=== PATIENT | male | born 1940 | race Hispanic/Latino ===

== ENCOUNTER 2020-11-17 15:10 | Inpatient (IN) | payer OTHER ==
[~2020-11-17] VITALS: Ht 167.6 cm; Wt 85.7 kg
[~2020-11-17 15:10] MED LIST: ACETAMINOPHEN PO; ALDACTONE25 MG PO; AMIODARONE HCL200 MG PO; AMIODARONE HCL400 MG PO; GABAPENTIN300 MG PO; GLUCOTROL XL5 MG PO; HYDROCODON-ACE1 EACH PO; KLOR-CON M2020 MEQ PO; LASIX40 MG PO; LEVOFLOXACIN500 MG PO; LEVOTHYROXINE75 MCG PO; LOPRESSOR25 MG PO; PRAVASTATIN SOD40 MG PO; TAMSULOSIN HCL0.4 MG PO; ULTRAM50 MG PO; WARFARIN SODIUM2 MG PO
[2020-11-17 15:43] LABS: BASOPHILS # (AUTO) 0.1 (0.0-0.1); BASOPHILS % 1.4 % (0.0-1.0); EOSINOPHILS # (AUTO) 0.2 (0.0-0.4); EOSINOPHILS % 3.3 % (0.0-6.0); HEMATOCRIT 21.1 % (38.2-49.6); LYMPHOCYTES # (AUTO) 0.9 (1.0-3.2); MEAN CORPUSCULAR HGB CONC 28.4 g/dL (31-35); MEAN CORPUSCULAR VOLUME 77.3 fL (81-99); MONOCYTES # (AUTO) 0.5 (0.2-0.8); MONOCYTES % 7.3 % (4.4-11.3); NEUTROPHILS # (AUTO) 5.2 (2.1-6.9); NEUTROPHILS % 74.4 % (38.7-80.0); PLATELET COUNT 383 x10e3/uL (140-360); RED BLOOD COUNT 2.73 x10e6/uL (4.3-5.7)
[2020-11-17 15:52] LABS: INR 3.68; PROTHROMBIN TIME 39.8 seconds (11.9-14.5)
[2020-11-17 15:59] LABS: ALBUMIN 3.6 g/dL (3.5-5.0); ANION GAP 14.7 mmol/L (8-16); CALCIUM 8.7 mg/dL (8.4-10.2); CREATININE, SERUM 2.42 mg/dL (0.72-1.25); POTASSIUM 4.7 mmol/L (3.5-5.1)
[2020-11-17 16:05] LABS: CREATINE KINASE MB 4.6 ng/mL (0-5.0)
[2020-11-17] MEDS ORDERED: ONDANSETRON HCL INJ 2MG/ML 2ML 2 MG/ML VIAL IV PRN (16:45)
[2020-11-17] MEDS ORDERED: SODIUM CHLORIDE 0.9% 1000ML 1,000 ML IV SCH (16:45)
[2020-11-17] MEDS ORDERED: FUROSEMIDE INJ 10 MG/ML 2 ML VIAL IV PRN (16:45)
[2020-11-17] MEDS ORDERED: TRAMADOL HCL 50 MG TAB PO PRN (17:45)
[2020-11-17 18:25] LABS: THYROID STIMULATING HORMONE 1.041 uIU/mL (0.350-4.940)
[2020-11-17] MEDS: GABAPENTIN 300 MG CAP PO SCH ×2 (18:51→21:00)
[2020-11-17 20:00] VITALS: BP 113/82
[2020-11-17] MEDS: INSULIN LISPRO 100 UNIT/1 ML 3ML VIAL SQ SCH (22:00)
[2020-11-17] MEDS ORDERED: DEXTROSE 50% SYRINGE 50 ML IV PRN (22:00)
[2020-11-17 22:58] VITALS: BP 113/63
[2020-11-18] VITALS (7 sets, daily range): BP systolic 106–123; BP diastolic 60–67
[2020-11-18] MEDS ORDERED: SODIUM CHLORIDE 0.9% 250ML 250 ML ONE ×4 (02:04→21:50)
[2020-11-18] MEDS: LEVOTHYROXINE SODIUM 75 MCG TAB PO SCH (05:03)
[2020-11-18 05:58] LABS: BASOPHILS # (AUTO) 0.1 (0.0-0.1); BASOPHILS % 1.7 % (0.0-1.0); EOSINOPHILS # (AUTO) 0.4 (0.0-0.4); EOSINOPHILS % 6.1 % (0.0-6.0); LYMPHOCYTES # (AUTO) 1.6 (1.0-3.2); LYMPHOCYTES % 27.2 % (18.0-39.1); MEAN CORPUSCULAR HEMOGLOBIN 23.2 pg (28-32); MEAN CORPUSCULAR HGB CONC 29.5 g/dL (31-35); MEAN CORPUSCULAR VOLUME 78.7 fL (81-99); MONOCYTES # (AUTO) 0.5 (0.2-0.8); MONOCYTES % 8.5 % (4.4-11.3); NEUTROPHILS # (AUTO) 3.3 (2.1-6.9); NEUTROPHILS % 56.2 % (38.7-80.0); PLATELET COUNT 342 x10e3/uL (140-360); RED BLOOD COUNT 2.67 x10e6/uL (4.3-5.7); RED CELL DISTRIBUTION WIDTH 18.1 % (11.7-14.4)
[2020-11-18 06:13] LABS: INR 3.1; PROTHROMBIN TIME 34.6 seconds (11.9-14.5)
[2020-11-18 06:29] LABS: CALCIUM 8.4 mg/dL (8.4-10.2); CREATININE, SERUM 2.24 mg/dL (0.72-1.25); HEMOGLOBIN 6.2 g/dL (14.0-18.0)
[2020-11-18] MEDS: INSULIN LISPRO 100 UNIT/1 ML 3ML VIAL SQ SCH ×4 (07:30→21:00)
[2020-11-18 07:47] LABS: MICROCYTOSIS SLIGHT
[2020-11-18 07:48] LABS: POLYCHROMASIA FEW
[2020-11-18 07:49] LABS: PLATELET ESTIMATE ADEQUATE; PLATELET MORPHOLOGY COMMENT NORMAL; RBC MORPHOLOGY COMMENT ABNORMAL
[2020-11-18 07:50] LABS: OVALOCYTES FEW; TARGET CELLS FEW
[2020-11-18] MEDS: FUROSEMIDE INJ 10 MG/ML 4 ML VIAL IV SCH ×2 (08:31→21:52)
[2020-11-18] MEDS: SPIRONOLACTONE 25 MG TAB PO SCH ×2 (08:32→17:00)
[2020-11-18] MEDS: TAMSULOSIN HCL 0.4 MG CAP PO SCH (08:33)
[2020-11-18] MEDS: AMIODARONE HCL 200 MG TAB PO SCH (08:33)
[2020-11-18] MEDS: METOPROLOL TARTRATE 25 MG TAB PO SCH ×2 (08:33→17:00)
[2020-11-18] MEDS: GABAPENTIN 300 MG CAP PO SCH ×4 (08:34→21:00)
[2020-11-18] MEDS ORDERED: FUROSEMIDE 40 MG TAB PO SCH (09:00)
[2020-11-18 10:44] LABS: HYPOCHROMASIA MODERATE
[2020-11-18] MEDS ORDERED: PEG (High)/E-LYTE SOLN 4,000 ML BTL PO ONE (15:00)
[2020-11-18 15:31] LABS: BASOPHILS # (AUTO) 0.1 (0.0-0.1); BASOPHILS % 1.7 % (0.0-1.0); EOSINOPHILS # (AUTO) 0.3 (0.0-0.4); EOSINOPHILS % 4.3 % (0.0-6.0); HEMATOCRIT 25.4 % (38.2-49.6); HEMOGLOBIN 7.5 g/dL (14.0-18.0); LYMPHOCYTES # (AUTO) 1.1 (1.0-3.2); MEAN CORPUSCULAR HEMOGLOBIN 23.6 pg (28-32); MEAN CORPUSCULAR HGB CONC 29.5 g/dL (31-35); MEAN CORPUSCULAR VOLUME 79.9 fL (81-99); MONOCYTES # (AUTO) 0.6 (0.2-0.8); MONOCYTES % 9.2 % (4.4-11.3); NEUTROPHILS # (AUTO) 4.4 (2.1-6.9); NEUTROPHILS % 67.5 % (38.7-80.0); PLATELET COUNT 349 x10e3/uL (140-360); RED BLOOD COUNT 3.18 x10e6/uL (4.3-5.7)
[2020-11-18 15:47] LABS: INR 2.71
[2020-11-19] VITALS (8 sets, daily range): BP systolic 95–121; BP diastolic 44–69
[2020-11-19] MEDS: LEVOTHYROXINE SODIUM 75 MCG TAB PO SCH (05:03)
[2020-11-19 05:26] LABS: BASOPHILS # (AUTO) 0.1 (0.0-0.1); BASOPHILS % 1.9 % (0.0-1.0); EOSINOPHILS # (AUTO) 0.2 (0.0-0.4); EOSINOPHILS % 3.1 % (0.0-6.0); LYMPHOCYTES # (AUTO) 1.7 (1.0-3.2); MEAN CORPUSCULAR HEMOGLOBIN 23.2 pg (28-32); MEAN CORPUSCULAR HGB CONC 29.7 g/dL (31-35); MEAN CORPUSCULAR VOLUME 78.1 fL (81-99); MONOCYTES # (AUTO) 0.7 (0.2-0.8); MONOCYTES % 11.6 % (4.4-11.3); NEUTROPHILS # (AUTO) 3.6 (2.1-6.9); NEUTROPHILS % 56.9 % (38.7-80.0); PLATELET COUNT 323 x10e3/uL (140-360); RED BLOOD COUNT 2.97 x10e6/uL (4.3-5.7); RED CELL DISTRIBUTION WIDTH 18.1 % (11.7-14.4)
[2020-11-19 05:31] LABS: HEMOGLOBIN 6.9 g/dL (14.0-18.0)
[2020-11-19 05:32] LABS: HEMATOCRIT 23.2 % (38.2-49.6)
[2020-11-19 05:38] LABS: INR 2.18
[2020-11-19 05:45] LABS: ANION GAP 16.8 mmol/L (8-16); CALCIUM 8.4 mg/dL (8.4-10.2); CREATININE, SERUM 2.28 mg/dL (0.72-1.25); POTASSIUM 3.8 mmol/L (3.5-5.1)
[2020-11-19] MEDS: INSULIN LISPRO 100 UNIT/1 ML 3ML VIAL SQ SCH ×4 (07:30→20:54)
[2020-11-19] MEDS: AMIODARONE HCL 200 MG TAB PO SCH ×2 (09:00→12:38)
[2020-11-19] MEDS ORDERED: SODIUM CHLORIDE 0.9% 250ML 250 ML IV SCH (09:00)
[2020-11-19] MEDS: METOPROLOL TARTRATE 25 MG TAB PO SCH ×2 (09:00→17:00)
[2020-11-19] MEDS: TAMSULOSIN HCL 0.4 MG CAP PO SCH (12:38)
[2020-11-19] MEDS: SPIRONOLACTONE 25 MG TAB PO SCH ×2 (12:38→18:36)
[2020-11-19] MEDS: FUROSEMIDE INJ 10 MG/ML 4 ML VIAL IV SCH ×2 (12:38→21:13)
[2020-11-19] MEDS: POTASSIUM CHLORIDE 10MEQ EA PO SCH (12:39)
[2020-11-19] MEDS: GABAPENTIN 300 MG CAP PO SCH ×5 (12:40→21:00)
[2020-11-19] MEDS ORDERED: LIDOCAINE HCL 2% LOCAL INJ 5 ML SDV VIAL INJ ONE (13:52)
[2020-11-19] MEDS ORDERED: PROPOFOL IV EMULSION 10 MG/ML 20 ML VIAL ONE (13:52)
[2020-11-19] MEDS ORDERED: ONDANSETRON HCL 4 MG ORAL DISINTEGRATING TAB PO PRN (14:15)
[2020-11-19] MEDS ORDERED: SODIUM CHLORIDE 0.9% 250ML 250 ML ONE (15:23)
[2020-11-20] VITALS (7 sets, daily range): BP systolic 91–121; BP diastolic 50–72
[2020-11-20 04:46] LABS: BASOPHILS # (AUTO) 0.1 (0.0-0.1); BASOPHILS % 1.8 % (0.0-1.0); EOSINOPHILS # (AUTO) 0.3 (0.0-0.4); EOSINOPHILS % 3.3 % (0.0-6.0); HEMOGLOBIN 8.5 g/dL (14.0-18.0); LYMPHOCYTES # (AUTO) 1.9 (1.0-3.2); LYMPHOCYTES % 24.6 % (18.0-39.1); MEAN CORPUSCULAR HEMOGLOBIN 23.8 pg (28-32); MEAN CORPUSCULAR HGB CONC 30.4 g/dL (31-35); MEAN CORPUSCULAR VOLUME 78.4 fL (81-99); MONOCYTES # (AUTO) 0.8 (0.2-0.8); MONOCYTES % 10.7 % (4.4-11.3); NEUTROPHILS # (AUTO) 4.6 (2.1-6.9); NEUTROPHILS % 59.1 % (38.7-80.0); PLATELET COUNT 321 x10e3/uL (140-360); RED BLOOD COUNT 3.57 x10e6/uL (4.3-5.7); RED CELL DISTRIBUTION WIDTH 18.8 % (11.7-14.4)
[2020-11-20 05:05] LABS: ANION GAP 15.5 mmol/L (8-16); CALCIUM 8.6 mg/dL (8.4-10.2); CREATININE, SERUM 2.06 mg/dL (0.72-1.25); POTASSIUM 3.5 mmol/L (3.5-5.1)
[2020-11-20] MEDS: LEVOTHYROXINE SODIUM 75 MCG TAB PO SCH (05:41)
[2020-11-20] MEDS: INSULIN LISPRO 100 UNIT/1 ML 3ML VIAL SQ SCH ×4 (07:30→21:00)
[2020-11-20] MEDS: AMIODARONE HCL 200 MG TAB PO SCH (09:00)
[2020-11-20] MEDS: METOPROLOL TARTRATE 25 MG TAB PO SCH ×2 (09:00→17:00)
[2020-11-20] MEDS ORDERED: PANTOPRAZOLE 40 MG 10ML VIAL INJ SCH (09:15)
[2020-11-20] MEDS ORDERED: SUCRALFATE 1 GM/10 ML SUSP NG SCH (09:15)
[2020-11-20] MEDS: SPIRONOLACTONE 25 MG TAB PO SCH ×2 (10:35→17:21)
[2020-11-20] MEDS: TAMSULOSIN HCL 0.4 MG CAP PO SCH (10:35)
[2020-11-20] MEDS: POTASSIUM CHLORIDE 10MEQ EA PO SCH (10:36)
[2020-11-20] MEDS: GABAPENTIN 300 MG CAP PO SCH ×4 (10:36→21:27)
[2020-11-20] MEDS ORDERED: ALBUTEROL0.63 MG/3 NEB (11:41)
[2020-11-20] MEDS: SUCRALFATE 1 GM/10 ML SUSP PO SCH ×3 (12:30→21:27)
[2020-11-20] MEDS: LEVALBUTEROL HCL SOLN NEBU 0.63 MG/3 ML NEB INH SCH ×2 (15:00→20:00)
[2020-11-21] VITALS (8 sets, daily range): BP systolic 93–128; BP diastolic 55–76
[2020-11-21] MEDS: LEVOTHYROXINE SODIUM 75 MCG TAB PO SCH (05:21)
[2020-11-21 06:00] LABS: BASOPHILS # (AUTO) 0.1 (0.0-0.1); BASOPHILS % 1.6 % (0.0-1.0); EOSINOPHILS # (AUTO) 0.5 (0.0-0.4); EOSINOPHILS % 6.5 % (0.0-6.0); HEMATOCRIT 29.4 % (38.2-49.6); HEMOGLOBIN 8.7 g/dL (14.0-18.0); LYMPHOCYTES % 25.5 % (18.0-39.1); MEAN CORPUSCULAR HEMOGLOBIN 23.3 pg (28-32); MEAN CORPUSCULAR HGB CONC 29.6 g/dL (31-35); MEAN CORPUSCULAR VOLUME 78.8 fL (81-99); MONOCYTES # (AUTO) 0.8 (0.2-0.8); MONOCYTES % 10.3 % (4.4-11.3); NEUTROPHILS # (AUTO) 4.3 (2.1-6.9); NEUTROPHILS % 55.4 % (38.7-80.0); PLATELET COUNT 334 x10e3/uL (140-360); RED BLOOD COUNT 3.73 x10e6/uL (4.3-5.7)
[2020-11-21 06:17] LABS: INR 1.63; PROTHROMBIN TIME 20.5 seconds (11.9-14.5)
[2020-11-21 06:45] LABS: ALBUMIN 3.2 g/dL (3.5-5.0); ANION GAP 13.3 mmol/L (8-16); CALCIUM 8.2 mg/dL (8.4-10.2); CREATININE, SERUM 1.64 mg/dL (0.72-1.25); POTASSIUM 3.3 mmol/L (3.5-5.1)
[2020-11-21] MEDS: LEVALBUTEROL HCL SOLN NEBU 0.63 MG/3 ML NEB INH SCH ×3 (07:00→20:15)
[2020-11-21] MEDS: INSULIN LISPRO 100 UNIT/1 ML 3ML VIAL SQ SCH ×4 (07:30→21:00)
[2020-11-21] MEDS ORDERED: POTASSIUM CHLORIDE 10MEQ EA PO ONE (08:15)
[2020-11-21] MEDS: ACETAMINOPHEN 325 MG TAB PO SCH ×3 (08:27→09:29)
[2020-11-21] MEDS: SUCRALFATE 1 GM/10 ML SUSP PO SCH ×4 (08:27→22:45)
[2020-11-21] MEDS: WARFARIN SOD 2 MG TAB PO SCH ×2 (08:37→17:06)
[2020-11-21] MEDS: FUROSEMIDE INJ 10 MG/ML 4 ML VIAL IV SCH (09:29)
[2020-11-21] MEDS: SPIRONOLACTONE 25 MG TAB PO SCH ×2 (09:29→17:05)
[2020-11-21] MEDS: TAMSULOSIN HCL 0.4 MG CAP PO SCH (09:29)
[2020-11-21] MEDS: AMIODARONE HCL 200 MG TAB PO SCH (09:29)
[2020-11-21] MEDS: GABAPENTIN 300 MG CAP PO SCH ×4 (09:30→22:45)
[2020-11-21] MEDS: METOPROLOL TARTRATE 25 MG TAB PO SCH ×2 (09:30→17:05)
[2020-11-21] MEDS: POTASSIUM CHLORIDE 10MEQ EA PO SCH (09:31)
[2020-11-21] MEDS ORDERED: IRON SUCROSE 100 MG in SODIUM CHLORIDE 0.9% 100 ML 100 ML IV SCH (14:00)
[2020-11-21] MEDS ORDERED: SODIUM CHLORIDE 0.9% 250ML 250 ML ONE (15:53)
[2020-11-22] VITALS (8 sets, daily range): BP systolic 100–131; BP diastolic 56–69
[2020-11-22] MEDS: LEVOTHYROXINE SODIUM 75 MCG TAB PO SCH (04:31)
[2020-11-22 05:33] LABS: BASOPHILS # (AUTO) 0.1 (0.0-0.1); BASOPHILS % 1.7 % (0.0-1.0); EOSINOPHILS # (AUTO) 0.6 (0.0-0.4); EOSINOPHILS % 7.2 % (0.0-6.0); HEMOGLOBIN 8.6 g/dL (14.0-18.0); LYMPHOCYTES # (AUTO) 1.9 (1.0-3.2); LYMPHOCYTES % 23.2 % (18.0-39.1); MEAN CORPUSCULAR HGB CONC 29.7 g/dL (31-35); MEAN CORPUSCULAR VOLUME 80.8 fL (81-99); MONOCYTES # (AUTO) 0.8 (0.2-0.8); MONOCYTES % 10.2 % (4.4-11.3); NEUTROPHILS # (AUTO) 4.6 (2.1-6.9); NEUTROPHILS % 57.3 % (38.7-80.0); PLATELET COUNT 323 x10e3/uL (140-360); RED BLOOD COUNT 3.59 x10e6/uL (4.3-5.7)
[2020-11-22] MEDS: LEVALBUTEROL HCL SOLN NEBU 0.63 MG/3 ML NEB INH SCH ×3 (07:00→23:17)
[2020-11-22] MEDS: INSULIN LISPRO 100 UNIT/1 ML 3ML VIAL SQ SCH ×4 (07:30→21:13)
[2020-11-22] MEDS: SUCRALFATE 1 GM/10 ML SUSP PO SCH ×4 (08:27→21:09)
[2020-11-22] MEDS: AMIODARONE HCL 200 MG TAB PO SCH (08:27)
[2020-11-22] MEDS: SPIRONOLACTONE 25 MG TAB PO SCH ×2 (08:27→17:17)
[2020-11-22] MEDS: FUROSEMIDE INJ 10 MG/ML 4 ML VIAL IV SCH (08:27)
[2020-11-22] MEDS: TAMSULOSIN HCL 0.4 MG CAP PO SCH (08:27)
[2020-11-22] MEDS: GABAPENTIN 300 MG CAP PO SCH ×4 (08:28→21:09)
[2020-11-22] MEDS: ACETAMINOPHEN 325 MG TAB PO SCH (08:28)
[2020-11-22] MEDS: METOPROLOL TARTRATE 25 MG TAB PO SCH ×2 (08:28→17:19)
[2020-11-22] MEDS: POTASSIUM CHLORIDE 10MEQ EA PO SCH (08:31)
[2020-11-22] MEDS ORDERED: POTASSIUM CHLORIDE 10MEQ EA PO ONE (09:00)
[2020-11-22] MEDS: FAMOTIDINE 20 MG/2 ML VIAL IV SCH ×2 (09:57→21:09)
[2020-11-22] MEDS: IRON SUCROSE 100 MG in SODIUM CHLORIDE 0.9% 100 ML 100 ML IV SCH (14:09)
[2020-11-22] MEDS ORDERED: WARFARIN SOD 1 MG TAB PO SCH (17:00)
[2020-11-23] VITALS: BP 108/62
[2020-11-23 04:00] VITALS: BP 104/59
[2020-11-23 05:17] LABS: BASOPHILS # (AUTO) 0.2 (0.0-0.1); BASOPHILS % 1.8 % (0.0-1.0); EOSINOPHILS # (AUTO) 0.6 (0.0-0.4); HEMATOCRIT 28.3 % (38.2-49.6); HEMOGLOBIN 8.3 g/dL (14.0-18.0); LYMPHOCYTES # (AUTO) 1.9 (1.0-3.2); LYMPHOCYTES % 23.4 % (18.0-39.1); MEAN CORPUSCULAR HEMOGLOBIN 23.5 pg (28-32); MEAN CORPUSCULAR HGB CONC 29.3 g/dL (31-35); MEAN CORPUSCULAR VOLUME 80.2 fL (81-99); MONOCYTES # (AUTO) 0.7 (0.2-0.8); MONOCYTES % 8.6 % (4.4-11.3); NEUTROPHILS # (AUTO) 4.9 (2.1-6.9); NEUTROPHILS % 58.8 % (38.7-80.0); PLATELET COUNT 306 x10e3/uL (140-360); RED BLOOD COUNT 3.53 x10e6/uL (4.3-5.7); RED CELL DISTRIBUTION WIDTH 19.6 % (11.7-14.4)
[2020-11-23 05:28] LABS: INR 1.74; PROTHROMBIN TIME 21.7 seconds (11.9-14.5)
[2020-11-23] MEDS: LEVOTHYROXINE SODIUM 75 MCG TAB PO SCH (05:30)
[2020-11-23] MEDS: INSULIN LISPRO 100 UNIT/1 ML 3ML VIAL SQ SCH (07:30)
[2020-11-23 07:52] VITALS: BP 103/58
[2020-11-23] MEDS: LEVALBUTEROL HCL SOLN NEBU 0.63 MG/3 ML NEB INH SCH (08:03)
[2020-11-23] MEDS ORDERED: WARFARIN SODIUM1 MG PO (08:15)
[2020-11-23] MEDS ORDERED: OMEPRAZOLE40 MG PO (08:15)
[2020-11-23] MEDS ORDERED: CARAFATE1 GM/10 ML PO (08:16)
[2020-11-23] MEDS ORDERED: SENNA LAXATIVE8.6 MG PO (08:18)
[2020-11-23] MEDS: SUCRALFATE 1 GM/10 ML SUSP PO SCH (08:30)
[2020-11-23] MEDS: TAMSULOSIN HCL 0.4 MG CAP PO SCH (08:31)
[2020-11-23] MEDS: AMIODARONE HCL 200 MG TAB PO SCH (08:31)
[2020-11-23] MEDS: POTASSIUM CHLORIDE 10MEQ EA PO SCH (08:31)
[2020-11-23] MEDS: SPIRONOLACTONE 25 MG TAB PO SCH (08:31)
[2020-11-23] MEDS: FUROSEMIDE INJ 10 MG/ML 4 ML VIAL IV SCH (08:31)
[2020-11-23] MEDS: FAMOTIDINE 20 MG/2 ML VIAL IV SCH (08:31)
[2020-11-23] MEDS: ACETAMINOPHEN 325 MG TAB PO SCH (08:37)
[2020-11-23] MEDS: GABAPENTIN 300 MG CAP PO SCH (08:37)
[2020-11-23] MEDS: METOPROLOL TARTRATE 25 MG TAB PO SCH (08:37)
[2020-11-23] MEDS: IRON SUCROSE 100 MG in SODIUM CHLORIDE 0.9% 100 ML 100 ML IV SCH (08:46)
[2020-11-23 09:40] VITALS: BP 103/58
[2020-11-23 11:28] LABS: HYPOCHROMASIA SLIGHT; POLYCHROMASIA FEW
[2020-11-23 11:29] LABS: ANISOCYTOSIS SLIGHT; OVALOCYTES FEW; PLATELET ESTIMATE ADEQUATE; PLATELET MORPHOLOGY COMMENT NORMAL; RBC MORPHOLOGY COMMENT ABNORMAL
== END 2020-11-23 10:47 | disposition home or self-care (01) | DRG 377 ==
LOC: ER 15:30 → ERHOLD 16:46 → MED/SURG 23:55
PROVIDERS: ADMIT Internal Medicine; ATTEND Internal Medicine
PROC: 30233L1 Transfusion of Nonautologous Fresh Plasma into Peripheral Vein, Percutaneous Approach (ICD-10-PCS; principal; 2020-11-18)
PROC: 30233N1 Transfusion of Nonautologous Red Blood Cells into Peripheral Vein, Percutaneous Approach (ICD-10-PCS; 2020-11-18)
PROC: 30233K1 Transfusion of Nonautologous Frozen Plasma into Peripheral Vein, Percutaneous Approach (ICD-10-PCS; 2020-11-18)
PROC: 0DBN8ZX Excision of Sigmoid Colon, Via Natural or Artificial Opening Endoscopic, Diagnostic (ICD-10-PCS; 2020-11-19)
PROC: 0DB78ZX Excision of Stomach, Pylorus, Via Natural or Artificial Opening Endoscopic, Diagnostic (ICD-10-PCS; 2020-11-19)
DX: K29.71 Gastritis, unspecified, with bleeding (principal); I50.23 Acute on chronic systolic (congestive) heart failure; I13.0 Hypertensive heart and chronic kidney disease with heart failure and stage 1 through stage 4 chronic kidney disease, or unspecified chronic kidney disease; D62 Acute posthemorrhagic anemia; N18.4 Chronic kidney disease, stage 4 (severe); E87.1 Hypo-osmolality and hyponatremia; I48.20 Chronic atrial fibrillation, unspecified; N17.9 Acute kidney failure, unspecified; E11.22 Type 2 diabetes mellitus with diabetic chronic kidney disease; E03.9 Hypothyroidism, unspecified; E78.5 Hyperlipidemia, unspecified; Z09 Encounter for follow-up examination after completed treatment for conditions other than malignant neoplasm; Z86.718 Personal history of other venous thrombosis and embolism; E11.42 Type 2 diabetes mellitus with diabetic polyneuropathy; Z95.828 Presence of other vascular implants and grafts; Z95.810 Presence of automatic (implantable) cardiac defibrillator; D64.9 Anemia, unspecified; T45.515A Adverse effect of anticoagulants, initial encounter; Z86.711 Personal history of pulmonary embolism; Z83.3 Family history of diabetes mellitus; Z82.49 Family history of ischemic heart disease and other diseases of the circulatory system; Z84.89 Family history of other specified conditions; Z79.84 Long term (current) use of oral hypoglycemic drugs; Z79.01 Long term (current) use of anticoagulants; Z20.822 Contact with and (suspected) exposure to COVID-19; K64.0 First degree hemorrhoids; K22.2 Esophageal obstruction; K44.9 Diaphragmatic hernia without obstruction or gangrene; D12.5 Benign neoplasm of sigmoid colon
CPT/HCPCS: 36415; 43239; 45378; 45384; 71045; 74176; 80048; 80053; 82550; 82553; 82607; 82746; 82948; 83540; 83880; 84443; 84466; 84484; 85025; 85610; 85730; 86850; 86900; 86920; 88305; 88312; 93005; 93306; 94640; 96372; 99251; 99285; J1756; J1940; J2001; J2405; J7030; J7050; P9016; P9017; U0002

== ENCOUNTER 2020-12-26 23:16 | Inpatient (IN) | payer OTHER ==
[~2020-12-26] VITALS: Ht 167.6 cm; Wt 85.7 kg
[~2020-12-26 23:16] MED LIST changes: +ALBUTEROL0.63 MG/3 NEB; +CARAFATE1 GM/10 ML PO; +OMEPRAZOLE40 MG PO; +SENNA LAXATIVE8.6 MG PO; +WARFARIN SODIUM1 MG PO
[2020-12-26] MEDS ORDERED: ASPIRIN 81 MG CHEW TAB PO ONE (23:30)
[2020-12-26 23:47] LABS: BASOPHILS # (AUTO) 0.1 (0.0-0.1); BASOPHILS % 1.5 % (0.0-1.0); EOSINOPHILS # (AUTO) 0.2 (0.0-0.4); EOSINOPHILS % 2.4 % (0.0-6.0); HEMATOCRIT 35.6 % (38.2-49.6); HEMOGLOBIN 10.4 g/dL (14.0-18.0); LYMPHOCYTES # (AUTO) 1.8 (1.0-3.2); LYMPHOCYTES % 27.3 % (18.0-39.1); MEAN CORPUSCULAR HEMOGLOBIN 23.2 pg (28-32); MEAN CORPUSCULAR HGB CONC 29.2 g/dL (31-35); MEAN CORPUSCULAR VOLUME 79.3 fL (81-99); MONOCYTES # (AUTO) 0.8 (0.2-0.8); MONOCYTES % 11.5 % (4.4-11.3); NEUTROPHILS # (AUTO) 3.7 (2.1-6.9); NEUTROPHILS % 56.8 % (38.7-80.0); PLATELET COUNT 309 x10e3/uL (140-360); RED BLOOD COUNT 4.49 x10e6/uL (4.3-5.7); RED CELL DISTRIBUTION WIDTH 23.4 % (11.7-14.4)
[2020-12-26 23:57] LABS: INR 2.21; PROTHROMBIN TIME 26.3 seconds (11.9-14.5)
[2020-12-27] VITALS (10 sets, daily range): BP systolic 91–136; BP diastolic 53–82
[2020-12-27 00:03] LABS: ALBUMIN 3.3 g/dL (3.5-5.0); ANION GAP 16.2 mmol/L (8-16); CALCIUM 8.4 mg/dL (8.4-10.2); CREATININE, SERUM 2.01 mg/dL (0.72-1.25); POTASSIUM 5.2 mmol/L (3.5-5.1)
[2020-12-27 00:24] LABS: CREATINE KINASE MB 1.4 ng/mL (0-5.0)
[2020-12-27 00:33] LABS: ABG HCO3 24 mmol/L (22-26); ABG PCO2 37 mmHg (35-45); ABG PH 7.42 (7.35-7.45); ABG PO2 131 mmHg (80-105); ABG TCO2 25
[2020-12-27] MEDS ORDERED: ASPIRIN 81 MG CHEW TAB PO ONE (01:15)
[2020-12-27 08:23] LABS: CREATINE KINASE MB 1.6 ng/mL (0-5.0)
[2020-12-27] MEDS ORDERED: DEXTROSE 50% SYRINGE 50 ML IV PRN (09:00)
[2020-12-27] MEDS ORDERED: TRAMADOL HCL 50 MG TAB PO PRN (09:00)
[2020-12-27] MEDS: AMIODARONE HCL 200 MG TAB PO SCH (10:18)
[2020-12-27] MEDS: FUROSEMIDE INJ 10 MG/ML 4 ML VIAL IV SCH ×2 (10:18→18:11)
[2020-12-27] MEDS: METOPROLOL TARTRATE 25 MG TAB PO SCH ×2 (10:18→18:13)
[2020-12-27] MEDS: PIPERACILLIN/TAZOBACTAM 2.25 GM in SODIUM CHLORIDE 0.9% 50ML 50 ML IV SCH ×3 (10:18→21:21)
[2020-12-27] MEDS: TAMSULOSIN HCL 0.4 MG CAP PO SCH (10:18)
[2020-12-27] MEDS: PANTOPRAZOLE SOD 40 MG TABEC PO SCH (10:19)
[2020-12-27] MEDS: SENNOSIDES 8.6 MG TAB PO SCH ×2 (10:19→18:13)
[2020-12-27] MEDS: GABAPENTIN 300 MG CAP PO SCH ×4 (10:19→21:03)
[2020-12-27] MEDS: ALBUTEROL SULF 0.083% NEB SOLN 3 ML NEB NEB SCH ×3 (10:46→20:35)
[2020-12-27] MEDS ORDERED: SODIUM CHLORIDE 0.9% 250ML 250 ML ONE (11:09)
[2020-12-27] MEDS: INSULIN LISPRO 100 UNIT/1 ML 3ML VIAL SQ SCH ×3 (12:49→21:53)
[2020-12-27] MEDS: SUCRALFATE 1 GM/10 ML SUSP PO SCH ×3 (13:11→21:03)
[2020-12-27] MEDS: GLIPIZIDE 5 MG TAB ER PO SCH (13:11)
[2020-12-27 15:30] LABS: CREATINE KINASE MB 1.4 ng/mL (0-5.0)
[2020-12-27] MEDS: WARFARIN SOD 1 MG TAB PO SCH (18:12)
[2020-12-27] MEDS: PRAVASTATIN 20 MG TAB PO SCH (21:03)
[2020-12-28] VITALS (7 sets, daily range): BP systolic 92–132; BP diastolic 48–78
[2020-12-28] MEDS: PIPERACILLIN/TAZOBACTAM 2.25 GM in SODIUM CHLORIDE 0.9% 50ML 50 ML IV SCH ×4 (04:22→23:34)
[2020-12-28 05:04] LABS: BASOPHILS # (AUTO) 0.1 (0.0-0.1); BASOPHILS % 2.2 % (0.0-1.0); EOSINOPHILS # (AUTO) 0.2 (0.0-0.4); EOSINOPHILS % 3.8 % (0.0-6.0); HEMATOCRIT 35.1 % (38.2-49.6); HEMOGLOBIN 10.3 g/dL (14.0-18.0); LYMPHOCYTES # (AUTO) 1.3 (1.0-3.2); LYMPHOCYTES % 26.6 % (18.0-39.1); MEAN CORPUSCULAR HEMOGLOBIN 23.3 pg (28-32); MEAN CORPUSCULAR HGB CONC 29.3 g/dL (31-35); MEAN CORPUSCULAR VOLUME 79.2 fL (81-99); MONOCYTES # (AUTO) 0.5 (0.2-0.8); MONOCYTES % 10.3 % (4.4-11.3); NEUTROPHILS # (AUTO) 2.9 (2.1-6.9); NEUTROPHILS % 56.7 % (38.7-80.0); PLATELET COUNT 274 x10e3/uL (140-360); RED BLOOD COUNT 4.43 x10e6/uL (4.3-5.7); RED CELL DISTRIBUTION WIDTH 23.1 % (11.7-14.4)
[2020-12-28 05:23] LABS: ALBUMIN 3.2 g/dL (3.5-5.0); ANION GAP 16.8 mmol/L (8-16); CALCIUM 8.5 mg/dL (8.4-10.2); POTASSIUM 3.8 mmol/L (3.5-5.1)
[2020-12-28] MEDS: LEVOTHYROXINE SODIUM 75 MCG TAB PO SCH (05:48)
[2020-12-28 06:12] LABS: THYROID STIMULATING HORMONE 1.541 uIU/mL (0.350-4.940)
[2020-12-28] MEDS: ALBUTEROL SULF 0.083% NEB SOLN 3 ML NEB NEB SCH ×3 (07:00→20:48)
[2020-12-28] MEDS: INSULIN LISPRO 100 UNIT/1 ML 3ML VIAL SQ SCH ×4 (07:30→21:00)
[2020-12-28] MEDS: PANTOPRAZOLE SOD 40 MG TABEC PO SCH (09:17)
[2020-12-28] MEDS: SUCRALFATE 1 GM/10 ML SUSP PO SCH ×4 (09:17→23:33)
[2020-12-28] MEDS: AMIODARONE HCL 200 MG TAB PO SCH (09:18)
[2020-12-28] MEDS: TAMSULOSIN HCL 0.4 MG CAP PO SCH (09:18)
[2020-12-28] MEDS: FUROSEMIDE INJ 10 MG/ML 4 ML VIAL IV SCH ×2 (09:18→12:46)
[2020-12-28] MEDS: GLIPIZIDE 5 MG TAB ER PO SCH (09:18)
[2020-12-28] MEDS: METOPROLOL TARTRATE 25 MG TAB PO SCH ×2 (09:18→17:39)
[2020-12-28] MEDS: GABAPENTIN 300 MG CAP PO SCH ×4 (09:19→23:33)
[2020-12-28] MEDS: SENNOSIDES 8.6 MG TAB PO SCH ×2 (09:19→17:41)
[2020-12-28 10:16] LABS: INR 2.14; PROTHROMBIN TIME 25.6 seconds (11.9-14.5)
[2020-12-28] MEDS: WARFARIN SOD 1 MG TAB PO SCH (17:38)
[2020-12-28] MEDS: PRAVASTATIN 20 MG TAB PO SCH (23:33)
[2020-12-29] VITALS (8 sets, daily range): BP systolic 93–115; BP diastolic 52–76
[2020-12-29 05:38] LABS: INR 2.07; PROTHROMBIN TIME 24.9 seconds (11.9-14.5)
[2020-12-29] MEDS: PIPERACILLIN/TAZOBACTAM 2.25 GM in SODIUM CHLORIDE 0.9% 50ML 50 ML IV SCH ×4 (05:48→20:44)
[2020-12-29] MEDS: LEVOTHYROXINE SODIUM 75 MCG TAB PO SCH (05:48)
[2020-12-29 05:52] LABS: ANION GAP 15.8 mmol/L (8-16); CALCIUM 8.5 mg/dL (8.4-10.2); CREATININE, SERUM 2.11 mg/dL (0.72-1.25); POTASSIUM 3.8 mmol/L (3.5-5.1)
[2020-12-29] MEDS: ALBUTEROL SULF 0.083% NEB SOLN 3 ML NEB NEB SCH ×3 (06:25→22:06)
[2020-12-29] MEDS: INSULIN LISPRO 100 UNIT/1 ML 3ML VIAL SQ SCH ×4 (07:30→20:44)
[2020-12-29] MEDS: FUROSEMIDE INJ 10 MG/ML 4 ML VIAL IV SCH ×2 (08:00→17:56)
[2020-12-29] MEDS: SUCRALFATE 1 GM/10 ML SUSP PO SCH ×4 (08:48→20:44)
[2020-12-29] MEDS: PANTOPRAZOLE SOD 40 MG TABEC PO SCH (08:48)
[2020-12-29] MEDS: TAMSULOSIN HCL 0.4 MG CAP PO SCH (08:48)
[2020-12-29] MEDS: GABAPENTIN 300 MG CAP PO SCH ×4 (08:49→20:44)
[2020-12-29] MEDS: SENNOSIDES 8.6 MG TAB PO SCH ×2 (08:49→17:54)
[2020-12-29] MEDS: AMIODARONE HCL 200 MG TAB PO SCH (09:00)
[2020-12-29] MEDS: METOPROLOL TARTRATE 25 MG TAB PO SCH ×2 (09:00→18:35)
[2020-12-29] MEDS: WARFARIN SOD 1 MG TAB PO SCH (17:54)
[2020-12-29] MEDS: PRAVASTATIN 20 MG TAB PO SCH (20:44)
[2020-12-30] VITALS (9 sets, daily range): BP systolic 95–109; BP diastolic 45–89
[2020-12-30] MEDS: PIPERACILLIN/TAZOBACTAM 2.25 GM in SODIUM CHLORIDE 0.9% 50ML 50 ML IV SCH ×4 (04:04→22:00)
[2020-12-30 05:13] LABS: INR 1.82; PROTHROMBIN TIME 22.5 seconds (11.9-14.5)
[2020-12-30 05:22] LABS: ANION GAP 16.7 mmol/L (8-16); CALCIUM 8.3 mg/dL (8.4-10.2); CREATININE, SERUM 1.81 mg/dL (0.72-1.25); POTASSIUM 3.7 mmol/L (3.5-5.1)
[2020-12-30] MEDS: LEVOTHYROXINE SODIUM 75 MCG TAB PO SCH (05:28)
[2020-12-30] MEDS: ALBUTEROL SULF 0.083% NEB SOLN 3 ML NEB NEB SCH ×2 (07:00→12:45)
[2020-12-30] MEDS: INSULIN LISPRO 100 UNIT/1 ML 3ML VIAL SQ SCH ×4 (07:30→21:00)
[2020-12-30] MEDS: SUCRALFATE 1 GM/10 ML SUSP PO SCH ×4 (09:39→21:27)
[2020-12-30] MEDS: AMIODARONE HCL 200 MG TAB PO SCH (09:39)
[2020-12-30] MEDS: PANTOPRAZOLE SOD 40 MG TABEC PO SCH (09:39)
[2020-12-30] MEDS: FUROSEMIDE INJ 10 MG/ML 4 ML VIAL IV SCH ×2 (09:39→12:00)
[2020-12-30] MEDS: TAMSULOSIN HCL 0.4 MG CAP PO SCH (09:41)
[2020-12-30] MEDS: METOPROLOL TARTRATE 25 MG TAB PO SCH ×2 (09:42→17:00)
[2020-12-30] MEDS: SENNOSIDES 8.6 MG TAB PO SCH ×2 (09:42→17:00)
[2020-12-30] MEDS: GABAPENTIN 300 MG CAP PO SCH ×4 (09:42→21:27)
[2020-12-30] MEDS ORDERED: POTASSIUM CHLORIDE 20 MEQ TAB CR PO ONE (11:30)
[2020-12-30] MEDS: WARFARIN SOD 1 MG TAB PO SCH (17:00)
[2020-12-30] MEDS: PRAVASTATIN 20 MG TAB PO SCH (21:27)
[2020-12-31] MEDS: ALBUTEROL SULF 0.083% NEB SOLN 3 ML NEB NEB SCH ×2 (00:07→07:00)
[2020-12-31 03:59] VITALS: BP 105/58
[2020-12-31] MEDS: PIPERACILLIN/TAZOBACTAM 2.25 GM in SODIUM CHLORIDE 0.9% 50ML 50 ML IV SCH ×2 (04:00→09:13)
[2020-12-31] MEDS: LEVOTHYROXINE SODIUM 75 MCG TAB PO SCH (06:05)
[2020-12-31 06:24] LABS: INR 1.61; PROTHROMBIN TIME 20.3 seconds (11.9-14.5)
[2020-12-31 06:28] LABS: ANION GAP 13.2 mmol/L (8-16); CALCIUM 8.5 mg/dL (8.4-10.2); CREATININE, SERUM 1.84 mg/dL (0.72-1.25); POTASSIUM 4.2 mmol/L (3.5-5.1)
[2020-12-31 08:06] VITALS: BP 105/58
[2020-12-31 09:03] VITALS: BP 113/92
[2020-12-31] MEDS: INSULIN LISPRO 100 UNIT/1 ML 3ML VIAL SQ SCH (09:09)
[2020-12-31] MEDS: SUCRALFATE 1 GM/10 ML SUSP PO SCH (09:11)
[2020-12-31] MEDS: SENNOSIDES 8.6 MG TAB PO SCH (09:13)
[2020-12-31] MEDS: METOPROLOL TARTRATE 25 MG TAB PO SCH (09:13)
[2020-12-31] MEDS: GABAPENTIN 300 MG CAP PO SCH (09:13)
[2020-12-31] MEDS: FUROSEMIDE INJ 10 MG/ML 4 ML VIAL IV SCH (09:13)
[2020-12-31] MEDS: AMIODARONE HCL 200 MG TAB PO SCH (09:13)
[2020-12-31] MEDS: PANTOPRAZOLE SOD 40 MG TABEC PO SCH (09:13)
[2020-12-31] MEDS: TAMSULOSIN HCL 0.4 MG CAP PO SCH (09:13)
== END 2020-12-31 12:08 | disposition home health service (06) | DRG 291 ==
LOC: ER 23:21 → ERHOLD 12-27 01:36 → MED/SURG2 12-27 02:09
PROVIDERS: ADMIT Internal Medicine; ATTEND Internal Medicine
DX: I13.0 Hypertensive heart and chronic kidney disease with heart failure and stage 1 through stage 4 chronic kidney disease, or unspecified chronic kidney disease (principal); I50.23 Acute on chronic systolic (congestive) heart failure; J18.9 Pneumonia, unspecified organism; N17.9 Acute kidney failure, unspecified; E87.1 Hypo-osmolality and hyponatremia; N18.4 Chronic kidney disease, stage 4 (severe); I48.20 Chronic atrial fibrillation, unspecified; E87.2 Acidosis; E11.22 Type 2 diabetes mellitus with diabetic chronic kidney disease; Z20.822 Contact with and (suspected) exposure to COVID-19; I42.9 Cardiomyopathy, unspecified; E03.9 Hypothyroidism, unspecified; E78.5 Hyperlipidemia, unspecified; Z86.718 Personal history of other venous thrombosis and embolism; Z79.01 Long term (current) use of anticoagulants; Z86.711 Personal history of pulmonary embolism; D63.1 Anemia in chronic kidney disease; Z86.73 Personal history of transient ischemic attack (TIA), and cerebral infarction without residual deficits; E87.5 Hyperkalemia; E11.65 Type 2 diabetes mellitus with hyperglycemia; I48.91 Unspecified atrial fibrillation; E11.649 Type 2 diabetes mellitus with hypoglycemia without coma; Z95.828 Presence of other vascular implants and grafts
CPT/HCPCS: 36415; 36600; 71045; 71250; 80048; 80053; 82550; 82553; 82805; 82948; 83036; 83540; 83735; 83880; 84443; 84466; 84484; 85025; 85610; 93005; 93306; 94640; 94660; 99284; J1940; J2543; J7050; U0002